=== PATIENT | male | born 1940 | race Caucasian/White ===

== ENCOUNTER 2016-12-31 14:46 | Inpatient (IN) | payer OTHER, BC ==
[2016-12-31 14:52] VITALS: BMI 30.4
--- NOTE | 2016-12-31 15:47 | PDOC ---
History of Present Illness - General History Source: Patient Exam Limitations: No Limitations - History of Present Illness Initial Comments: 12/31/16 16:00 CHIEF COMPLAINT: Fever, cough PCP: Dr. Arteaga HISTORY OF PRESENT ILLNESS: Patient is a 76-year-old male presented to the ED with chief complaints of cough and fever. A/c to the patient, he had productive cough since a week, producing whitish-yellowish sputum, no blood noticed. Last night, he had rigors and sweating for several hours and Temp (Tmax was 104.5 F), took one tylenol and fever decreased to 102F. This morning he called Dr. Arteaga and he recommended to come to the ED at [facility]. Patient reports that his son had a flu 2weeks ago and patient had been visiting him wearing a mask. He mentions he has a high risk of bleeding in NSAIDs and even tylenol but unsure about the risk of bleeding with tylenol. Denies chest pain, sob, palpitation, abdominal pain, nausea or vomiting. Sleep-disturbed due to cough Appetite decreased Bowel/Bladder habit normal. Recent Travel: None PAST MEDICAL HISTORY: Atrial fibrillation on Plavix, Colon polyp s/p polypectomy , Retinal detachment s/p 6 surgery. PAST SURGICAL HISTORY: As mentioned above Social History: Smoking: Quit 47 years ago. Alcohol: Denies Drugs: Denies Family History: Allergies: NKDA <Cheryl Marin - Last Filed: 12/31/16 19:48> <Bindu Rojas - Last Filed: 01/02/17 08:26> - General Chief Complaint: Cold Symptoms Stated Complaint: FLU LIKE SYMTOMPS Time Seen by Provider: 12/31/16 15:45 Past History - Past Medical History Anemia: No Asthma: No Cancer: Yes (SKIN) Cardiac Disorders: Yes (ATRIAL FIBRILLATION) CVA: No COPD: No CHF: No Dementia: No Diabetes: No GI Disorders: No (REFLUX, BRAGG'S ESOPHAGUS, GASTRITIS) Disorders: Yes (ENLARGED PROSTATE) HTN: No Hypercholesterolemia: Yes (BORDERLINE) Liver Disease: No Seizures: No Thyroid Disease: No - Surgical History Abdominal Surgery: Yes (REPAIR UMBILICAL HERNIA 2X) Appendectomy: No Cardiac Surgery: No Cholecystectomy: No Lung Surgery: No Neurologic Surgery: No Orthopedic Surgery: No - Immunization History TDAP Vaccination: No - Psycho/Social/Smoking Cessation Hx Anxiety: No Suicidal Ideation: No Smoking Status: Yes Smoking History: Former smoker Have you smoked in the past 12 months: No Number of Cigarettes Smoked Daily: 0 If you are a former smoker, when did you quit?: 2011 Information on smoking cessation initiated: No 'Breaking Loose' booklet given: 05/17/12 Hx Alcohol Use: Yes (RARELY) Drug/Substance Use Hx: No Substance Use Type: None Hx Substance Use Treatment: No <Cheryl Marin - Last Filed: 12/31/16 19:48> <Bindu Rojas - Last Filed: 01/02/17 08:26> - Past Medical History Allergies/Adverse Reactions: Allergies Allergy/AdvReac Type Severity Reaction Status Date / Time codeine phosphate AdvReac Verified 12/31/16 14:52 [From Tylenol-Codeine] Home Medications: Ambulatory Orders Furosemide [Lasix -] 40 mg PO DAILY 05/14/12 Finasteride [Proscar] 5 mg PO HS 09/07/14 Omeprazole Magnesium [Prilosec (OTC)] 1 tab OD DAILY 09/07/14 Ranitidine [Zantac -] 1 tab PO DAILY 09/07/14 Tamsulosin HCl [Flomax -] 0.4 mg PO HS 09/07/14 Clopidogrel Bisulfate [Plavix -] 75 mg PO DAILY #0 09/08/14 Cholecalciferol (Vitamin D3) [D3-2000] 2,000 unit PO DAILY 09/18/14 Review of Systems - Review of Systems Able to Perform ROS?: Yes Comments:: 12/31/16 17:22 CONSTITUTIONAL: Present: fever, chills, diaphoresis, generalized weakness, malaise, loss of appetite Absent: HEENT: Absent: rhinorrhea, nasal congestion, throat pain, throat swelling, difficulty swallowing, mouth swelling, ear pain, eye pain, visual Changes CARDIOVASCULAR: Absent: chest pain, syncope, palpitations, irregular heart rate, lightheadedness , peripheral edema RESPIRATORY: Present: cough Absent: shortness of breath, dyspnea with exertion, orthopnea, wheezing, stridor , hemoptysis GASTROINTESTINAL: Absent: abdominal pain, abdominal distension, nausea, vomiting, diarrhea, constipation, melena, hematochezia GENITOURINARY:~ Absent: dysuria, frequency, urgency, hesitancy, hematuria, flank pain, genital pain MUSCULOSKELETAL:~ Absent: myalgia, arthralgia, joint swelling SKIN:~ Absent: rash, itching, pallor HEMATOLOGIC/IMMUNOLOGIC:~ Absent: easy bleeding, easy bruising, lymphadenopathy, frequent infections ENDOCRINE: Absent: unexplained weight gain, unexplained weight loss, heat intolerance, cold intolerance NEUROLOGIC:~ Absent: headache, focal weakness or paresthesias, dizziness, unsteady gait, seizure, mental status changes, bladder or bowel incontinence PSYCHIATRIC:~ Absent: anxiety, depression, suicidal or homicidal ideation, hallucinations. Is the patient limited Cymro proficient: No <Cheryl Marin - Last Filed: 12/31/16 19:48> *Physical Exam - Vital Signs Last Vital Signs Temp Pulse Resp BP Pulse Ox 99.1 F 116 H 18 118/67 95 12/31/16 14:49 12/31/16 14:49 12/31/16 14:49 12/31/16 14:49 12/31/16 14:49 - Physical Exam Comments: 12/31/16 17:23 PE: GENERAL: Awake, alert, and fully oriented, in no acute distress HEAD: No signs of trauma EYES: PERRLA, EOMI, sclera anicteric, conjunctiva clear ENT: Auricles normal inspection, hearing grossly normal, nares patent, oropharynx clear without exudates. Moist mucosa NECK: Normal ROM, supple, no lymphadenopathy, JVD, or masses LUNGS: Breath sounds equal, clear to auscultation bilaterally. No wheezes, and no crackles.. HEART: Irregularly irregular, normal S1 and S2, soft systolic murmur +. ABDOMEN: Soft, nontender, normoactive bowel sounds. No guarding, no rebound. No masses EXTREMITIES: Normal range of motion, no edema. No clubbing or cyanosis. No cords, erythema, or tenderness NEUROLOGICAL: Cranial nerves II through XII grossly intact. Normal speech,gait not observed. SKIN: Warm, Dry, normal turgor, no rashes or lesions noted. <Cheryl Marin - Last Filed: 12/31/16 19:48> - Vital Signs Last Vital Signs Temp Pulse Resp BP Pulse Ox 98.2 F 95 H 16 121/64 93 L 01/02/17 06:00 01/02/17 06:00 01/02/17 06:00 01/02/17 06:00 01/01/17 21:00 <Bindu Rojas - Last Filed: 01/02/17 08:26> ED Treatment Course - LABORATORY CBC & Chemistry Diagram: 12/31/16 16:40 12/31/16 16:40 <TaniaCheryl pleitez - Last Filed: 12/31/16 19:48> - LABORATORY CBC & Chemistry Diagram: 01/02/17 06:00 01/02/17 06:00 - ADDITIONAL ORDERS Additional order review: 12/31/16 18:40 Blood Culture - Preliminary Blood - Central Line NO GROWTH OBTAINED AFTER 24 HOURS, INCUBATION TO CONTINUE FOR 4 DAYS. 12/31/16 18:18 Blood Culture - Preliminary Blood - Central Line NO GROWTH OBTAINED AFTER 24 HOURS, INCUBATION TO CONTINUE FOR 4 DAYS. 12/31/16 16:41 Respiratory Virus Panel - Preliminary Nasopharyngeal Swab 12/31/16 16:41 Influenza Types A,B Antigen (TANISHA) - Final Nasopharyngeal Swab - Final 12/31/16 16:40 RBC 3.86 L MCV 91.3 MCHC 34.3 RDW 13.4 MPV 8.4 Neutrophils % 91.0 H D Lymphocytes % 6.3 L D Monocytes % 2.6 L Eosinophils % 0.0 D Basophils % 0.1 - Medications Given in the ED: ED Medications Discontinued Medications Generic Name Dose Route Start Last Admin Trade Name Freq PRN Reason Stop Dose Admin Sodium Chloride 1,000 mls @ 75 mls/hr 12/31/16 16:45 12/31/16 16:10 Normal Saline - IV 75 mls/hr ASDIR JON Administration Azithromycin 500 mg/ Dextrose 250 mls @ 250 mls/hr 12/31/16 19:20 12/31/16 19: 57 IVPB 12/31/16 20:19 250 mls/hr ONCE ONE Administration Ceftriaxone Sodium 1 gm/ 50 mls @ 100 mls/hr 12/31/16 19:19 12/31/16 19:41 Dextrose IVPB 12/31/16 19:48 100 mls/hr ONCE ONE Administration Non-Formulary Medication 2,000 unit 12/31/16 19:45 12/31/16 22:15 Cholecalciferol (Vitamin D3) [D3-2000] PO Not Given DAILY JON Non-Formulary Medication 1 tab 12/31/16 19:45 12/31/16 22:15 Omeprazole Magnesium [Prilosec (Otc)] OD Not Given DAILY JON <Bindu Rojas - Last Filed: 01/02/17 08:26> Medical Decision Making - Medical Decision Making 12/31/16 14:50 Patient seen and examined at bed side. Vitals noted, Temp 99F. Patient looks comfortable. Physical examination, irregularly irregular pulse, rest benign. Will order basic labs, cxr, ekg, flu swab IV fluids Differential diagnosis: Flu, Pneumonia, viral URTI 12/31/16 16:00 Patient reassessed. No complaints Labs noted. Leukocytosis; Chest x-ray shows right middle lobe infiltrate IV Ceftriaxone, IV azithromycin and Tamiflu ordered. 12/31/2016 19:35 Clinical Impression: Right middle lobe pneumonia Call placed to Dr. Arteaga. As per his recommendations, Admitted the patient in Med/Surg Resumed his home medications Hold Lasix D5 1/2 NS @ 60cc Sodium controlled diet ordered Illness, Investigation and Plan of care explained to the patient. He verbalized understanding. Case seen and discussed with Dr. Rojas, Dr. Treadwell and Dr. Arteaga. <Elizabeth Marinny - Last Filed: 12/31/16 19:48> *DC/Admit/Observation/Transfer - Discharge Dispostion Admit: Yes <TaniaCheryl - Last Filed: 12/31/16 19:48> - Attestations Physician Attestion: I have performed the following: I have examined & evaluated the patient, The case was reviewed & discussed with the resident, I agree w/resident's findings & plan, Exceptions are as noted - HPI HPI: 76 yo M multiple medical problems presenting with fever x2 days with Tmax 104.5 at home. He had a +flu exposure from a family member, however, he was wearing a mask. +Sweats. He has had productive cough for past 1 week. No difficulty breathing, chest pain. - Physicial Exam PE: GENERAL: Awake, alert, and fully oriented, in no acute distress. Appears ill but nontoxic. HEAD: No signs of trauma EYES: PERRLA, EOMI, sclera anicteric, conjunctiva clear. ENT: Auricles normal inspection, hearing grossly normal, nares patent, oropharynx clear without exudates. Dry mucosa NECK: Normal ROM, supple, no lymphadenopathy, JVD, or masses LUNGS: Breath sounds equal, clear to auscultation bilaterally. No wheezes, and no crackles HEART: Irregularly irregular, normal S1 and S2, no murmurs, rubs or gallops ABDOMEN: Soft, nontender, normoactive bowel sounds. No guarding, no rebound. No masses EXTREMITIES: Normal range of motion, no edema. No clubbing or cyanosis. No cords, erythema, or tenderness NEUROLOGICAL: Cranial nerves II through XII grossly intact. Normal speech, normal gait SKIN: Warm, Dry, normal turgor, no rashes or lesions noted. - Medical Decision Making Will obtain flu swab, labs, UA, UCx, and BCx, as well as chest x-ray. Will discuss with Dr. Nix pending results. <Bindu Rojas - Last Filed: 01/02/17 08:26> Diagnosis at time of Disposition: Pneumonia Qualifiers: Pneumonia type: due to unspecified organism Laterality: right Lung location: unspecified part of lung Qualified Code(s): J18.9 - Pneumonia, unspecified organism - Discharge Dispostion Condition at time of disposition: Guarded - Referrals
[2016-12-31] MEDS ORDERED: SODIUM CHLORIDE 1,000 ML IV SCH (16:45)
[2016-12-31 16:56] LABS: URINE APPEARANCE CLEAR; URINE BILIRUBIN NEGATIVE (NEGATIVE); URINE BLOOD NEGATIVE (NEGATIVE); URINE COLOR YELLOW; URINE GLUCOSE (UA) NEGATIVE (NEGATIVE); URINE KETONE NEGATIVE (NEGATIVE); URINE LEUK ESTERASE NEGATIVE (NEGATIVE); URINE NITRITE NEGATIVE (NEGATIVE); URINE UROBILINOGEN NEGATIVE E.U./dl (0.2-1.0)
[2016-12-31 17:01] LABS: BASOPHIL 0.1 % (0-2.0); MCH 31.3 pg (25.7-33.7); MCHC 34.3 g/dl (32.0-35.9); MEAN CELL VOLUME 91.3 fl (80-96); MEAN PLT VOLUME 8.4 fl (7.5-11.1); PLATELET COUNT 174 K/MM3 (134-434); RDW 13.4 % (11.9-15.9); WHITE BLOOD COUNT 13.3 K/mm3 (4.0-10.0)
[2016-12-31 17:14] LABS: INR 1.36 (0.82-1.09)
[2016-12-31 17:17] LABS: ACTIVATED PTT 33.3 SECONDS (26.9-34.4)
[2016-12-31 17:23] LABS: URINE PROTEIN 1+ (NEGATIVE)
[2016-12-31 17:26] LABS: ALBUMIN 3.1 g/dl (3.4-5.0); BILIRUBIN,TOTAL 2.6 mg/dL (0.2-1.0); CALCIUM 8.4 mg/dL (8.5-10.1); CREATININE 1.3 mg/dL (0.7-1.3); TOT PROT 6.9 g/dl (6.4-8.2)
[2016-12-31 17:29] LABS: URINE MUCUS RARE; URINE RBC <1 /hpf (0-3); URINE WBC 1 /hpf (3-5)
[2016-12-31] MEDS ORDERED: CEFTRIAXONE 1 GM in DEXTROSE 5%-WATER - 50 ML IVPB ONE (19:19)
[2016-12-31] MEDS ORDERED: AZITHROMYCIN IVPB 500 MG in DEXTROSE 5%-WATER - 250 ML IVPB ONE (19:20)
[2016-12-31] MEDS ORDERED: AZITHROMYCIN IVPB 250 ML IVPB ONE (19:33)
[2016-12-31] MEDS ORDERED: CEFTRIAXONE 50 ML ONE (19:33)
[2016-12-31] MEDS ORDERED: OMEPRAZOLE MAGNESIUM OD SCH (19:45)
[2016-12-31] MEDS ORDERED: CHOLECALCIFEROL PO SCH (19:45)
[2016-12-31] MEDS ORDERED: [UNRECOGNIZED DRUG - OTHER] PO SCH (19:45)
[2016-12-31] MEDS ORDERED: ACETAMINOPHEN 325 MG TABLET (FP) PO PRN (19:45)
[2016-12-31] MEDS ORDERED: ACETAMINOPHEN 325 MG TABLET (FP) ONE (21:23)
[2016-12-31] MEDS: RANITIDINE HCL 150 MG TABLET (FP) PO SCH (22:14)
[2016-12-31] MEDS: CLOPIDOGREL BISULFATE 75 MG TABLET (FP) PO SCH (22:14)
[2016-12-31] MEDS: PANTOPRAZOLE 20 MG TABLET (FP) PO SCH (22:15)
[2016-12-31] MEDS: DEXTROSE 5%-0.45% SALINE 1,000 ML IV SCH (22:48)
[2016-12-31] MEDS: FINASTERIDE 5 MG TABLET (FP) PO SCH (22:49)
[2016-12-31] MEDS: TAMSULOSIN HCL 0.4 MG CAP.ER.24H (FP) PO SCH (22:49)
[2016-12-31] MEDS: OSELTAMIVIR PHOSPHATE 75 MG CAPSULE PO SCH (22:50)
[2017-01-01] MEDS: CLOPIDOGREL BISULFATE 75 MG TABLET (FP) PO SCH (09:59)
[2017-01-01] MEDS: RANITIDINE HCL 150 MG TABLET (FP) PO SCH (10:00)
[2017-01-01] MEDS: CHOLECALCIFEROL (VITAMIN D3) 1,000 UNIT TABLET (FP) PO SCH (10:00)
[2017-01-01] MEDS: PANTOPRAZOLE 20 MG TABLET (FP) PO SCH (10:00)
[2017-01-01] MEDS: OSELTAMIVIR PHOSPHATE 75 MG CAPSULE PO SCH ×2 (10:00→21:35)
[2017-01-01] MEDS ORDERED: INFLUENZA VACCINE 45 MCG/0.5 ML (MDV 16-17) IM ONE ×2 (10:00→10:45)
--- NOTE | 2017-01-01 12:10 | PN ---
Teaching Attending Note Name of Resident: Dunia Alonzo ATTENDING PHYSICIAN STATEMENT I saw and evaluated the patient. I reviewed the resident's note and discussed the case with the resident. I agree with the resident's findings and plan as documented. 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
[2017-01-01] MEDS ORDERED: AZITHROMYCIN IVPB 500 MG in DEXTROSE 5%-WATER - 250 ML IVPB SCH (12:15)
[2017-01-01] MEDS ORDERED: CEFTRIAXONE 1 GM in DEXTROSE 5%-WATER - 50 ML IVPB SCH (12:15)
[2017-01-01] MEDS: cefTRIAXone 1 GM/50 ML BAG (PRE-DOCKED) IVPB SCH (13:58)
[2017-01-01] MEDS: AZITHROMYCIN IVPB 500 MG/250 ML D5W PRE-DOCKED IVPB SCH (13:59)
--- NOTE | 2017-01-01 14:10 | EKG ---
Test Reason : Blood Pressure : / mmHG Vent. Rate : 095 BPM Atrial Rate : 131 BPM P-R Int : 000 ms QRS Dur : 100 ms QT Int : 360 ms P-R-T Axes : 000 057 033 degrees QTc Int : 452 ms ATRIAL FIBRILLATION ABNORMAL ECG WHEN COMPARED WITH ECG OF 04-NOV-2012 16:00, NO SIGNIFICANT CHANGE WAS FOUND Confirmed by JORDAN CLEMONS MD ([id number]) on 01/01/2017 2:09:58 PM Referred By: Confirmed By:JORDAN CLEMONS MD
--- NOTE | 2017-01-01 15:40 | PN ---
Progress Note (short form) - Note Progress Note: ID Consult dictated 76 y/o ex-smoker admitted with one week hx productive cough, fever. CXR/CT RML pneumonia Son recently diagnosed with influenza RML pneumonia Possible sepsis secondary to pneumonia Await cultures Empiric zithromax/ ceftriaxone
--- NOTE | 2017-01-01 16:23 | CONSULT ---
Addendum entered and electronically signed by Dunia Alonzo RES 01/01/17 17: 46: . Original Note: Consultation: REQUESTING PROVIDER: CONSULT REQUEST: We have been asked to medically evaluate this patient for cough and fever. HISTORY OF PRESENT ILLNESS: This is a 76 yo M past smoker with PMH of a fib on plav, colon polyp and retinal detachment, who presents due to cough x 1 w and fever x 2 days. He states that 1 w ago he visited a family member in the hospital who had influenza. He wore a mask at the time. He did not have a flu or PNA shot this season. Shortly after trista visit he developed cough with yellow sputum w/o sob. Cough worsened and 2 days ago he developed fever 104 and rigors. He has 45 pack yr smoking history, quit 30 yrs ago. 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 He currently feels a it better but developed some hemoptysis. He denies sob, chest pain, abd pain, n/v, diarrhea, dysuria. REVIEW OF SYSTEMS: CONSTITUTIONAL: Absent: diaphoresis, generalized weakness, malaise, loss of appetite, weight change HEENT: Absent: rhinorrhea, nasal congestion, throat pain CARDIOVASCULAR: Absent: chest pain, syncope, palpitations RESPIRATORY: Absent: shortness of breath, dyspnea with exertion, orthopnea, wheezing, stridor GASTROINTESTINAL: Absent: abdominal pain, abdominal distension, nausea, vomiting, diarrhea, constipation, melena, hematochezia GENITOURINARY: Absent: dysuria MUSCULOSKELETAL: Absent: myalgia, arthralgia SKIN: Absent: rash, itching, pallor HEMATOLOGIC/IMMUNOLOGIC: Absent: frequent infections ENDOCRINE: Absent: heat intolerance, cold intolerance NEUROLOGIC: Absent: headache, focal weakness or paresthesias, dizziness PSYCHIATRIC: Absent: anxiety, depression PHYSICAL EXAMINATION Vital Signs - 24 hr 12/31/16 12/31/16 01/01/17 21:21 22:30 06:00 Temperature 101.2 F H 99.9 F H 98.5 F Pulse Rate 108 H 97 H Pulse Rate [ 94 H Right] Respiratory 20 20 20 Rate Blood Pressure 112/66 109/57 Blood Pressure 150/80 [Left Arm] O2 Sat by Pulse 96 93 L Oximetry (%) 01/01/17 01/01/17 01/01/17 09:00 09:05 13:00 Temperature 98.7 F 98.1 F Pulse Rate 103 H 105 H Pulse Rate [ Right] Respiratory 20 20 20 Rate Blood Pressure 100/50 103/69 Blood Pressure [Left Arm] O2 Sat by Pulse 93 L Oximetry (%) GENERAL: Awake, alert, and fully oriented, in no acute distress. HEAD: Normal with no signs of trauma. EYES: Pupils equal, round and reactive to light, extraocular movements intact, sclera anicteric, conjunctiva clear. EARS, NOSE, THROAT: Moist mucous membranes. NECK: supple without JVD LUNGS: RLL ronchi HEART: irregular, normal S1 and S2 ABDOMEN: Soft, nontender, not distended, normoactive bowel sounds MUSCULOSKELETAL: No CVA tenderness. UPPER EXTREMITIES: 2+ pulses, No peripheral edema. LOWER EXTREMITIES: 2+ pulses, No peripheral edema. NEUROLOGICAL: Cranial nerves II-XII grossly intact. PSYCHIATRIC: Cooperative. Good eye contact. SKIN: Warm, dry Active Medications Generic Name Dose Route Start Last Admin Trade Name Freq PRN Reason Stop Dose Admin Acetaminophen 650 mg 12/31/16 19:45 12/31/16 21:24 Tylenol - PO 650 mg TID PRN Administration FEVER Albuterol Sulfate 1 amp 01/01/17 13:10 Ventolin 0.083% Nebulizer Soln - NEB Q1H PRN SHORT OF BREATH/WHEEZING Azithromycin 500 mg 01/01/17 13:00 01/01/17 13:59 Zithromax 500mg Ivpb (Pre-Docked) IVPB 500 mg DAILY JON Administration Ceftriaxone Sodium 1 gm 01/01/17 13:00 01/01/17 13:58 Rocephin 1gm Ivpb (Pre-Docked) IVPB 1 gm DAILY OJN Administration Cholecalciferol 2,000 unit 01/01/17 10:00 01/01/17 10:00 Vitamin D3 - PO 2,000 unit DAILY JON Administration Clopidogrel Bisulfate 75 mg 12/31/16 19:45 01/01/17 09:59 Plavix - PO 75 mg DAILY JON Administration Finasteride 5 mg 12/31/16 22:00 12/31/16 22:49 Proscar - PO 5 mg HS JON Administration Dextrose/Sodium Chloride 1,000 mls @ 60 mls/hr 12/31/16 19:45 12/31/16 22:48 D5-1/2ns - IV 60 mls/hr ASDIR JON Administration Influenza Virus Vaccine 45 mcg 01/01/17 10:45 Fluvirin IM 01/01/17 10:46 .ONCE ONE Oseltamivir Phosphate 75 mg 12/31/16 22:00 01/01/17 10:00 Tamiflu - PO 01/05/17 21:59 75 mg BID JON Administration Pantoprazole Sodium 20 mg 12/31/16 20:15 01/01/17 10:00 Protonix - PO 20 mg DAILY JON Administration Ranitidine HCl 150 mg 12/31/16 19:45 01/01/17 10:00 Zantac - PO 150 mg DAILY JON Administration Tamsulosin HCl 0.4 mg 12/31/16 22:00 12/31/16 22:49 Flomax - PO 0.4 mg HS JON Administration ASSESSMENT/PLAN: Community acquired Pneumonia -influenza exposure -flu swab negative -cotnact precaution -tamiflu -flu vaccine -CXR RLL infiltrate -CT Chest RML PNA -rocephin, azithro -robitussin -albuterol -legionella antigen -sputum culture/gram -resp virus culture A fib -continue plavix -rate controlled Dispo: We will continue to follow the patient. Thank you for this consultative opportunity. Problem List - Problems (1) Afib Code(s): I48.91 - UNSPECIFIED ATRIAL FIBRILLATION (2) Pneumonia Code(s): J18.9 - PNEUMONIA, UNSPECIFIED ORGANISM (3) Community acquired bacterial pneumonia Code(s): J15.9 - UNSPECIFIED BACTERIAL PNEUMONIA (4) Influenza Code(s): J11.1 - FLU DUE TO UNIDENTIFIED INFLUENZA VIRUS W OTH RESP MANIFEST Visit type - Emergency Visit Emergency Visit: Yes ED Registration Date: 12/31/16 Care time: The patient presented to the Emergency Department on the above date and was hospitalized for further evaluation of their emergent condition. - New Patient This patient is new to me today: Yes Date on this admission: 01/01/17 - Critical Care Critical Care patient: No
--- NOTE | 2017-01-01 17:10 | PN ---
Teaching Attending Note Name of Resident: Cheryl Marin ATTENDING PHYSICIAN STATEMENT I saw and evaluated the patient. I reviewed the resident's note and discussed the case with the resident. I agree with the resident's findings and plan as documented. RIGHT MIDDLE LOBE INFILTRATE MULTIPLE MEDICAL PROBLEMS LISTED AGREE WITH CURRENT ANTIBIOTIC REGIMEN Carlos COLLADO MD
--- NOTE | 2017-01-01 19:12 | CONS ---
DATE OF CONSULTATION: DATE OF DICTATION: 01/01/2017 The patient is a 76-year-old male, ex smoker, who was evaluated for right middle lobe pneumonia. He presents with a 1-week history of worsening productive cough, dyspnea, pleuritic type chest pain, and fever. The patient reports cough productive of yellowish/whitish sputum, most recently blood-streaked. He also has sternal chest pain with cough. He also experienced fever and chills. The patient was recently hospitalized with heart issues and was diagnosed with acute influenza. He does not live with his son. Positive ill contacts (son). No recent travel or significant pet exposure. No recent hospitalization. Past medical history positive for coronary artery disease, atrial fibrillation, gastroesophageal reflux, colonic polyps. PAST SURGICAL HISTORY: Status post colonic polypectomy, retinal detachment. Allergies to CODEINE. MEDICATIONS: Lasix, Proscar, Prilosec, Zantac, Flomax, Plavix. SOCIAL HISTORY: Former smoker. Lives at home with his . SYSTEMS REVIEW: Neurologic: No loss of consciousness, seizure activity, focal weakness. Cardiac: Negative chest pain or palpitations. Respiratory: As per HPI. Gastrointestinal: Negative vomiting or diarrhea. Genitourinary: Negative for urinary tract infection. LABORATORY DATA: White count 13.3, 91 neutrophils, 6 lymphocytes, hematocrit 35.2, platelet count 174. BUN 10, creatinine 1.3. Urine analysis: 1 white cell. Chest x-ray shows right middle lobe infiltrate. CAT scan of the chest shows extensive right middle lobe consolidation. PHYSICAL EXAMINATION: General: He is out of bed to chair. He is not acutely toxic appearing. Vital Signs: Temperature 98.1, T-max 101.2. Blood pressure 103/69. Pulse 105, regular. Respiration 22 per minute. Eyes: Sclerae anicteric. Oropharynx: Negative. Neck: Supple. Heart Sounds: S1, S2. Lungs: Crepitations, right lower lung field. Abdomen: Obese, soft, nontender. Extremities: 1+ edema. There is chronic venous stasis dermatitis, lower extremities bilaterally. IMPRESSION: A 76-year-old male, ex smoker, admitted with 1-week history of productive cough and fever, found on chest x-ray and CAT scan to have a right middle lobe pneumonia. 1. Right middle lobe pneumonia, likely community acquired versus atypical. 2. Possible post-viral pneumonitis. 3. Possible sepsis secondary to pneumonia. Await culture results. Empiric antibiotic coverage with Zithromax and ceftriaxone. Obtain sputum culture, urine Legionella, and pneumococcal antigens. Case discussed with patient's present at the time of examination. Thank you for the kind referral. JORGE A BEDOLLA M.D. [id number]
[2017-01-01] MEDS ORDERED: PT OWN MED DRAWER 7, Y5N ONE (21:31)
[2017-01-01] MEDS: FINASTERIDE 5 MG TABLET (FP) PO SCH (21:35)
[2017-01-01] MEDS: DEXTROSE 5%-0.45% SALINE 1,000 ML IV SCH (21:35)
[2017-01-01] MEDS: TAMSULOSIN HCL 0.4 MG CAP.ER.24H (FP) PO SCH (21:35)
[2017-01-01] MEDS: ALBUTEROL SO4 0.083% IH SOL 2.5 MG/3 ML VIAL.NEB. NEB PRN (21:50)
[2017-01-02] MEDS: ALBUTEROL SO4 0.083% IH SOL 2.5 MG/3 ML VIAL.NEB. NEB PRN ×2 (05:50→11:48)
[2017-01-02] MEDS: DEXTROSE 5%-0.45% SALINE 1,000 ML IV SCH ×2 (06:02→21:35)
[2017-01-02 06:58] LABS: BASOPHIL 0.2 % (0-2.0); EOSINOPHIL 0.2 % (0-4.5); MCH 31.6 pg (25.7-33.7); MCHC 33.9 g/dl (32.0-35.9); MEAN CELL VOLUME 93.1 fl (80-96); MEAN PLT VOLUME 8.4 fl (7.5-11.1); NEUTROPHILS 64.7 % (42.8-82.8); PLATELET COUNT 142 K/MM3 (134-434); RDW 13.5 % (11.9-15.9); WHITE BLOOD COUNT 6.9 K/mm3 (4.0-10.0)
[2017-01-02 07:25] LABS: CALCIUM 8.3 mg/dL (8.5-10.1)
[2017-01-02] MEDS: cefTRIAXone 1 GM/50 ML BAG (PRE-DOCKED) IVPB SCH (09:53)
[2017-01-02] MEDS: OSELTAMIVIR PHOSPHATE 75 MG CAPSULE PO SCH ×2 (09:59→21:35)
[2017-01-02] MEDS: CLOPIDOGREL BISULFATE 75 MG TABLET (FP) PO SCH (09:59)
[2017-01-02] MEDS ORDERED: INFLUENZA VACCINE 60 MCG/0.5 ML (P/F DISP.SYRIN 16-17) IM ONE (10:00)
[2017-01-02] MEDS: CHOLECALCIFEROL (VITAMIN D3) 1,000 UNIT TABLET (FP) PO SCH (10:00)
[2017-01-02] MEDS: PANTOPRAZOLE 20 MG TABLET (FP) PO SCH (10:00)
[2017-01-02] MEDS: RANITIDINE HCL 150 MG TABLET (FP) PO SCH (10:00)
[2017-01-02] MEDS: AZITHROMYCIN IVPB 500 MG/250 ML D5W PRE-DOCKED IVPB SCH (10:42)
--- NOTE | 2017-01-02 12:39 | PN ---
Teaching Attending Note Name of Resident: Dunia Alonzo ATTENDING PHYSICIAN STATEMENT I saw and evaluated the patient. I reviewed the resident's note and discussed the case with the resident. I agree with the resident's findings and plan as documented. 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 Problem List - Problems (1) Pneumonia Code(s): J18.9 - PNEUMONIA, UNSPECIFIED ORGANISM Qualifiers: Pneumonia type: due to unspecified organism Laterality: right Lung location: unspecified part of lung Qualified Code(s): J18.9 - Pneumonia, unspecified organism (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
[2017-01-02] MEDS: FUROSEMIDE 40 MG TABLET (FP) PO SCH (13:35)
--- NOTE | 2017-01-02 15:03 | PN ---
Progress Note, Physician History of Present Illness: OOB in chair Still with cough, pleuritic cp No c/o dyspnea No fever/ chills Cultures pending - Current Medication List Current Medications: Active Medications Acetaminophen (Tylenol -) 650 mg PO TID PRN PRN Reason: FEVER Last Admin: 12/31/16 21:24 Dose: 650 mg Albuterol Sulfate (Ventolin 0.083% Nebulizer Soln -) 1 amp NEB Q1H PRN PRN Reason: SHORT OF BREATH/WHEEZING Last Admin: 01/02/17 11:48 Dose: 1 amp Azithromycin (Zithromax 500mg Ivpb (Pre-Docked)) 500 mg IVPB DAILY [facility] Last Admin: 01/02/17 10:42 Dose: 500 mg Ceftriaxone Sodium (Rocephin 1gm Ivpb (Pre-Docked)) 1 gm IVPB DAILY [facility] Last Admin: 01/02/17 09:53 Dose: 1 gm Cholecalciferol (Vitamin D3 -) 2,000 unit PO DAILY [facility] Last Admin: 01/02/17 10:00 Dose: 2,000 unit Clopidogrel Bisulfate (Plavix -) 75 mg PO DAILY [facility] Last Admin: 01/02/17 09:59 Dose: 75 mg Finasteride (Proscar -) 5 mg PO HS [facility] Last Admin: 01/01/17 21:35 Dose: 5 mg Furosemide (Lasix -) 40 mg PO DAILY [facility] Last Admin: 01/02/17 13:35 Dose: 40 mg Dextrose/Sodium Chloride (D5-1/2ns -) 1,000 mls @ 60 mls/hr IV ASDIR [facility] Last Admin: 01/02/17 06:02 Dose: 60 mls/hr Oseltamivir Phosphate (Tamiflu -) 75 mg PO BID [facility] Stop: 01/05/17 21:59 Last Admin: 01/02/17 09:59 Dose: 75 mg Pantoprazole Sodium (Protonix -) 20 mg PO DAILY [facility] Last Admin: 01/02/17 10:00 Dose: 20 mg Ranitidine HCl (Zantac -) 150 mg PO DAILY [facility] Last Admin: 01/02/17 10:00 Dose: 150 mg Tamsulosin HCl (Flomax -) 0.4 mg PO HS [facility] Last Admin: 01/01/17 21:35 Dose: 0.4 mg - Objective Vital Signs: Vital Signs Temperature 98.1 F 01/02/17 10:00 Pulse Rate 97 H 01/02/17 10:00 Respiratory Rate 19 01/02/17 10:00 Blood Pressure 106/62 01/02/17 10:00 O2 Sat by Pulse Oximetry (%) 94 L 01/02/17 09:00 Constitutional: Yes: No Distress Eyes: Yes: Conjunctiva Clear Cardiovascular: Yes: Regular Rate and Rhythm, S1, S2 Respiratory: Yes: Rhonchi, Other (R base) Gastrointestinal: Yes: Normal Bowel Sounds, Soft. No: Tenderness Edema: Yes Edema: LLE: 1+, RLE: 1+ Labs: CBC, BMP 01/02/17 06:00 01/02/17 06:00 INR, PTT INR 1.36 (0.82-1.09) H 12/31/16 16:40 Assessment/Plan RML pneumonia Possible sepsis secondary to pneumonia Await c/s Continue empiric zithromax/ ceftriaxone
--- NOTE | 2017-01-02 15:33 | PN ---
Physical Exam: SUBJECTIVE: Patient seen and examined Resting in bed comfortably NAD. No acute events. Afebrile and hemodynamically stable. Feels, better, stronger, cough is the same, purulent sputum frothy with some hemoptysis. He denies sob, chest pain, abd pain, n/v, diarrhea, dysuria. OBJECTIVE: Vital Signs Period Temp Pulse Resp BP Sys/Haynes Pulse Ox Last 24 Hr 98.0 F-98.4 F 93-97 16-19 106-127/62-70 93-94 GENERAL: Awake, alert, and fully oriented, in no acute distress. HEAD: Normal with no signs of trauma. EYES: Pupils equal, round and reactive to light, extraocular movements intact, sclera anicteric, conjunctiva clear. EARS, NOSE, THROAT: Moist mucous membranes. NECK: supple without JVD LUNGS: RLL ronchi HEART: irregular, normal S1 and S2 ABDOMEN: Soft, nontender, not distended, normoactive bowel sounds MUSCULOSKELETAL: No CVA tenderness. UPPER EXTREMITIES: 2+ pulses, No peripheral edema. LOWER EXTREMITIES: 2+ pulses, No peripheral edema. NEUROLOGICAL: Cranial nerves II-XII grossly intact. PSYCHIATRIC: Cooperative. Good eye contact. SKIN: Warm, dry Laboratory Results - last 24 hr 01/02/17 01/02/17 06:00 06:00 WBC 6.9 D RBC 3.75 L Hgb 11.8 Hct 34.9 L MCV 93.1 MCHC 33.9 RDW 13.5 Plt Count 142 MPV 8.4 Neutrophils % 64.7 D Lymphocytes % 31.8 D Monocytes % 3.1 L Eosinophils % 0.2 D Basophils % 0.2 Sodium 141 Potassium 4.0 Chloride 105 Carbon Dioxide 26 Anion Gap 10 BUN 14 Creatinine 1.0 D Random Glucose 117 H Calcium 8.3 L Active Medications Generic Name Dose Route Start Last Admin Trade Name Freq PRN Reason Stop Dose Admin Acetaminophen 650 mg 12/31/16 19:45 12/31/16 21:24 Tylenol - PO 650 mg TID PRN Administration FEVER Albuterol Sulfate 1 amp 01/01/17 13:10 01/02/17 11:48 Ventolin 0.083% Nebulizer Soln - NEB 1 amp Q1H PRN Administration SHORT OF BREATH/WHEEZING Azithromycin 500 mg 01/01/17 13:00 01/02/17 10:42 Zithromax 500mg Ivpb (Pre-Docked) IVPB 500 mg DAILY [facility] Administration Ceftriaxone Sodium 1 gm 01/01/17 13:00 01/02/17 09:53 Rocephin 1gm Ivpb (Pre-Docked) IVPB 1 gm DAILY [facility] Administration Cholecalciferol 2,000 unit 01/01/17 10:00 01/02/17 10:00 Vitamin D3 - PO 2,000 unit DAILY [facility] Administration Clopidogrel Bisulfate 75 mg 12/31/16 19:45 01/02/17 09:59 Plavix - PO 75 mg DAILY [facility] Administration Finasteride 5 mg 12/31/16 22:00 01/01/17 21:35 Proscar - PO 5 mg HS [facility] Administration Furosemide 40 mg 01/02/17 13:30 01/02/17 13:35 Lasix - PO 40 mg DAILY [facility] Administration Dextrose/Sodium Chloride 1,000 mls @ 60 mls/hr 12/31/16 19:45 01/02/17 06:02 D5-1/2ns - IV 60 mls/hr ASDIR [facility] Administration Oseltamivir Phosphate 75 mg 12/31/16 22:00 01/02/17 09:59 Tamiflu - PO 01/05/17 21:59 75 mg BID [facility] Administration Pantoprazole Sodium 20 mg 12/31/16 20:15 01/02/17 10:00 Protonix - PO 20 mg DAILY [facility] Administration Ranitidine HCl 150 mg 12/31/16 19:45 01/02/17 10:00 Zantac - PO 150 mg DAILY [facility] Administration Tamsulosin HCl 0.4 mg 12/31/16 22:00 01/01/17 21:35 Flomax - PO 0.4 mg HS [facility] Administration ASSESSMENT/PLAN: Community acquired Pneumonia -influenza exposure -flu swab negative -tamiflu -flu vaccine -CXR RLL infiltrate -CT Chest RML PNA -rocephin, azithro d2 -robitussin -albuterol -legionella antigen negative -sputum culture/gram -resp virus culture A fib -continue plavix -rate controlled Dispo: We will continue to follow the patient. Thank you for this consultative opportunity. Problem List - Problems (1) Afib Code(s): I48.91 - UNSPECIFIED ATRIAL FIBRILLATION (2) Pneumonia Code(s): J18.9 - PNEUMONIA, UNSPECIFIED ORGANISM Qualifiers: Pneumonia type: due to unspecified organism Laterality: right Lung location: unspecified part of lung Qualified Code(s): J18.9 - Pneumonia, unspecified organism (3) Community acquired bacterial pneumonia Code(s): J15.9 - UNSPECIFIED BACTERIAL PNEUMONIA (4) Influenza Code(s): J11.1 - FLU DUE TO UNIDENTIFIED INFLUENZA VIRUS W OTH RESP MANIFEST Visit type - Emergency Visit Emergency Visit: Yes ED Registration Date: 12/31/16 Care time: The patient presented to the Emergency Department on the above date and was hospitalized for further evaluation of their emergent condition. - New Patient This patient is new to me today: No - Critical Care Critical Care patient: No - Discharge Referral Referred to [facility] Med P.C.: No
[2017-01-02] MEDS ORDERED: PT OWN MED DRAWER 7, Y5N ONE ×2 (21:30→22:32)
[2017-01-02] MEDS: ACYCLOVIR 400 MG TABLET PO SCH (21:35)
[2017-01-02] MEDS: TAMSULOSIN HCL 0.4 MG CAP.ER.24H (FP) PO SCH (21:35)
[2017-01-02] MEDS: FINASTERIDE 5 MG TABLET (FP) PO SCH (21:35)
[2017-01-03] MEDS: DEXTROSE 5%-0.45% SALINE 1,000 ML IV SCH ×3 (06:38→22:00)
[2017-01-03] MEDS ORDERED: PT OWN MED DRAWER 7, Y5N ONE ×2 (09:18→21:00)
[2017-01-03] MEDS: CHOLECALCIFEROL (VITAMIN D3) 1,000 UNIT TABLET (FP) PO SCH (09:26)
[2017-01-03] MEDS: RANITIDINE HCL 150 MG TABLET (FP) PO SCH (09:26)
[2017-01-03] MEDS: FUROSEMIDE 40 MG TABLET (FP) PO SCH (09:26)
[2017-01-03] MEDS: PANTOPRAZOLE 20 MG TABLET (FP) PO SCH (09:26)
[2017-01-03] MEDS: ACYCLOVIR 400 MG TABLET PO SCH ×2 (09:26→21:12)
[2017-01-03] MEDS: OSELTAMIVIR PHOSPHATE 75 MG CAPSULE PO SCH ×2 (09:26→21:13)
[2017-01-03] MEDS: CLOPIDOGREL BISULFATE 75 MG TABLET (FP) PO SCH (09:26)
[2017-01-03] MEDS: AZITHROMYCIN IVPB 500 MG/250 ML D5W PRE-DOCKED IVPB SCH (09:29)
--- NOTE | 2017-01-03 10:25 | PN ---
Progress Note, Physician History of Present Illness: OOB in chair C/O perioral HSV Still with cough, blood-streaked sputum No c/o chest pain/ dyspnea Afebrile, WBC improved- WNL - Current Medication List Current Medications: Active Medications Acetaminophen (Tylenol -) 650 mg PO TID PRN PRN Reason: FEVER Last Admin: 12/31/16 21:24 Dose: 650 mg Acyclovir (Zovirax -) 400 mg PO BID [facility] Stop: 01/05/17 00:00 Last Admin: 01/03/17 09:26 Dose: 400 mg Albuterol Sulfate (Ventolin 0.083% Nebulizer Soln -) 1 amp NEB Q1H PRN PRN Reason: SHORT OF BREATH/WHEEZING Last Admin: 01/02/17 11:48 Dose: 1 amp Azithromycin (Zithromax 500mg Ivpb (Pre-Docked)) 500 mg IVPB DAILY [facility] Last Admin: 01/03/17 09:29 Dose: 500 mg Ceftriaxone Sodium (Rocephin 1gm Ivpb (Pre-Docked)) 1 gm IVPB DAILY [facility] Last Admin: 01/02/17 09:53 Dose: 1 gm Cholecalciferol (Vitamin D3 -) 2,000 unit PO DAILY [facility] Last Admin: 01/03/17 09:26 Dose: 2,000 unit Clopidogrel Bisulfate (Plavix -) 75 mg PO DAILY [facility] Last Admin: 01/03/17 09:26 Dose: 75 mg Finasteride (Proscar -) 5 mg PO HS [facility] Last Admin: 01/02/17 21:35 Dose: 5 mg Furosemide (Lasix -) 40 mg PO DAILY [facility] Last Admin: 01/03/17 09:26 Dose: 40 mg Dextrose/Sodium Chloride (D5-1/2ns -) 1,000 mls @ 60 mls/hr IV ASDIR [facility] Last Admin: 01/03/17 06:38 Dose: 60 mls/hr Oseltamivir Phosphate (Tamiflu -) 75 mg PO BID [facility] Stop: 01/05/17 21:59 Last Admin: 01/03/17 09:26 Dose: 75 mg Pantoprazole Sodium (Protonix -) 20 mg PO DAILY [facility] Last Admin: 01/03/17 09:26 Dose: 20 mg Ranitidine HCl (Zantac -) 150 mg PO DAILY [facility] Last Admin: 01/03/17 09:26 Dose: 150 mg Tamsulosin HCl (Flomax -) 0.4 mg PO HS [facility] Last Admin: 01/02/17 21:35 Dose: 0.4 mg - Objective Vital Signs: Vital Signs Temperature 98.1 F 01/03/17 09:15 Pulse Rate 100 H 01/03/17 09:15 Respiratory Rate 20 01/03/17 09:15 Blood Pressure 128/65 01/03/17 09:15 O2 Sat by Pulse Oximetry (%) 95 01/02/17 21:00 Constitutional: Yes: No Distress Eyes: Yes: Conjunctiva Clear HENT: Yes: Other (+perioral HSV) Cardiovascular: Yes: Regular Rate and Rhythm, S1 Respiratory: Yes: Other (+ crepitations, R base) Gastrointestinal: Yes: Normal Bowel Sounds, Soft, Abdomen, Obese. No: Tenderness Edema: Yes Edema: LLE: 1+, RLE: 1+ Integumentary: Yes: Venous Stasis Changes Labs: CBC, BMP 01/02/17 06:00 01/02/17 06:00 INR, PTT INR 1.36 (0.82-1.09) H 12/31/16 16:40 Assessment/Plan RML pneumonia Possible sepsis secondary to pneumonia Sputum c/s - Yeast= contaminant Continue empiric zithromax/ ceftriaxone
[2017-01-03] MEDS: cefTRIAXone 1 GM/50 ML BAG (PRE-DOCKED) IVPB SCH (10:54)
--- NOTE | 2017-01-03 11:16 | PN ---
Progress Note, Physician History of Present Illness: pulmonary alert,feeling better,-sob,+cough bood streaked sputum - Current Medication List Current Medications: Active Medications Acetaminophen (Tylenol -) 650 mg PO TID PRN PRN Reason: FEVER Last Admin: 12/31/16 21:24 Dose: 650 mg Acyclovir (Zovirax -) 400 mg PO BID [facility] Stop: 01/05/17 00:00 Last Admin: 01/03/17 09:26 Dose: 400 mg Albuterol Sulfate (Ventolin 0.083% Nebulizer Soln -) 1 amp NEB Q1H PRN PRN Reason: SHORT OF BREATH/WHEEZING Last Admin: 01/02/17 11:48 Dose: 1 amp Azithromycin (Zithromax 500mg Ivpb (Pre-Docked)) 500 mg IVPB DAILY [facility] Last Admin: 01/03/17 09:29 Dose: 500 mg Ceftriaxone Sodium (Rocephin 1gm Ivpb (Pre-Docked)) 1 gm IVPB DAILY [facility] Last Admin: 01/03/17 10:54 Dose: 1 gm Cholecalciferol (Vitamin D3 -) 2,000 unit PO DAILY [facility] Last Admin: 01/03/17 09:26 Dose: 2,000 unit Clopidogrel Bisulfate (Plavix -) 75 mg PO DAILY [facility] Last Admin: 01/03/17 09:26 Dose: 75 mg Finasteride (Proscar -) 5 mg PO HS [facility] Last Admin: 01/02/17 21:35 Dose: 5 mg Furosemide (Lasix -) 40 mg PO DAILY [facility] Last Admin: 01/03/17 09:26 Dose: 40 mg Dextrose/Sodium Chloride (D5-1/2ns -) 1,000 mls @ 60 mls/hr IV ASDIR [facility] Last Admin: 01/03/17 06:38 Dose: 60 mls/hr Oseltamivir Phosphate (Tamiflu -) 75 mg PO BID [facility] Stop: 01/05/17 21:59 Last Admin: 01/03/17 09:26 Dose: 75 mg Pantoprazole Sodium (Protonix -) 20 mg PO DAILY [facility] Last Admin: 01/03/17 09:26 Dose: 20 mg Ranitidine HCl (Zantac -) 150 mg PO DAILY [facility] Last Admin: 01/03/17 09:26 Dose: 150 mg Tamsulosin HCl (Flomax -) 0.4 mg PO HS [facility] Last Admin: 01/02/17 21:35 Dose: 0.4 mg - Objective Vital Signs: Vital Signs Temperature 98.1 F 01/03/17 09:15 Pulse Rate 100 H 01/03/17 09:15 Respiratory Rate 20 01/03/17 09:15 Blood Pressure 128/65 01/03/17 09:15 O2 Sat by Pulse Oximetry (%) 95 01/02/17 21:00 Constitutional: Yes: Well Nourished, Calm Eyes: Yes: WNL HENT: Yes: WNL Neck: Yes: WNL Cardiovascular: Yes: Pulse Irregular, S1, S2 Respiratory: Yes: CTA Bilaterally Gastrointestinal: Yes: WNL Extremities: Yes: WNL Edema: No Labs: CBC, BMP 01/02/17 06:00 01/02/17 06:00 INR, PTT INR 1.36 (0.82-1.09) H 12/31/16 16:40 Problem List - Problems (1) Pneumonia Code(s): J18.9 - PNEUMONIA, UNSPECIFIED ORGANISM Qualifiers: Pneumonia type: due to unspecified organism Laterality: right Lung location: unspecified part of lung Qualified Code(s): J18.9 - Pneumonia, unspecified organism (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 Assessment/Plan IMP RML PNEUMONIA COMMUNITY ACQUIRED AFIB GERD BARRETTS ESOPHAGUS PLAN IV ANTIBIOTICS as ID O2 INHALED BRONCHODILATORS F/U CHEST X-RAy am Zovirax cream DR BROWN Problem List - Problems (1) Pneumonia Code(s): J18.9 - PNEUMONIA, UNSPECIFIED ORGANISM (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 Problem List - Problems (1) Pneumonia Code(s): J18.9 - PNEUMONIA, UNSPECIFIED ORGANISM Qualifiers: Pneumonia type: due to unspecified organism Laterality: right Lung location: unspecified part of lung Qualified Code(s): J18.9 - Pneumonia, unspecified organism (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
[2017-01-03] MEDS: FINASTERIDE 5 MG TABLET (FP) PO SCH (21:13)
[2017-01-03] MEDS: TAMSULOSIN HCL 0.4 MG CAP.ER.24H (FP) PO SCH (21:13)
--- NOTE | 2017-01-04 09:21 | PN ---
Progress Note, Physician Chief Complaint: ID Clinical improvement note NO fevers several days and couph better - Current Medication List Current Medications: Active Medications Acetaminophen (Tylenol -) 650 mg PO TID PRN PRN Reason: FEVER Last Admin: 12/31/16 21:24 Dose: 650 mg Acyclovir (Zovirax -) 400 mg PO BID [facility] Stop: 01/05/17 00:00 Last Admin: 01/03/17 21:12 Dose: 400 mg Albuterol Sulfate (Ventolin 0.083% Nebulizer Soln -) 1 amp NEB Q1H PRN PRN Reason: SHORT OF BREATH/WHEEZING Last Admin: 01/02/17 11:48 Dose: 1 amp Azithromycin (Zithromax 500mg Ivpb (Pre-Docked)) 500 mg IVPB DAILY [facility] Last Admin: 01/03/17 09:29 Dose: 500 mg Ceftriaxone Sodium (Rocephin 1gm Ivpb (Pre-Docked)) 1 gm IVPB DAILY [facility] Last Admin: 01/03/17 10:54 Dose: 1 gm Cholecalciferol (Vitamin D3 -) 2,000 unit PO DAILY [facility] Last Admin: 01/03/17 09:26 Dose: 2,000 unit Clopidogrel Bisulfate (Plavix -) 75 mg PO DAILY [facility] Last Admin: 01/03/17 09:26 Dose: 75 mg Finasteride (Proscar -) 5 mg PO HS [facility] Last Admin: 01/03/17 21:13 Dose: 5 mg Furosemide (Lasix -) 40 mg PO DAILY [facility] Last Admin: 01/03/17 09:26 Dose: 40 mg Oseltamivir Phosphate (Tamiflu -) 75 mg PO BID [facility] Stop: 01/05/17 21:59 Last Admin: 01/03/17 21:13 Dose: 75 mg Pantoprazole Sodium (Protonix -) 20 mg PO DAILY [facility] Last Admin: 01/03/17 09:26 Dose: 20 mg Ranitidine HCl (Zantac -) 150 mg PO DAILY [facility] Last Admin: 01/03/17 09:26 Dose: 150 mg Tamsulosin HCl (Flomax -) 0.4 mg PO HS [facility] Last Admin: 01/03/17 21:13 Dose: 0.4 mg - Objective Vital Signs: Vital Signs Temperature 98.8 F 01/04/17 09:11 Pulse Rate 96 H 01/04/17 09:11 Respiratory Rate 19 01/04/17 09:11 Blood Pressure 116/81 01/04/17 09:11 O2 Sat by Pulse Oximetry (%) 97 01/04/17 09:00 Constitutional: Yes: Well Nourished, No Distress HENT: Yes: WNL, Atraumatic Neck: Yes: WNL, Supple Cardiovascular: Yes: Regular Rate and Rhythm, S1, S2 Respiratory: Yes: WNL, Regular, CTA Bilaterally Gastrointestinal: Yes: WNL, Normal Bowel Sounds, Soft, Tenderness. No: Tenderness, Epigastrium Edema: No Integumentary: Yes: Venous Stasis Changes Labs: CBC, BMP 01/02/17 06:00 01/02/17 06:00 INR, PTT INR 1.36 (0.82-1.09) H 12/31/16 16:40 Problem List - Problems (1) Pneumonia Code(s): J18.9 - PNEUMONIA, UNSPECIFIED ORGANISM Qualifiers: Pneumonia type: due to unspecified organism Laterality: right Lung location: unspecified part of lung Qualified Code(s): J18.9 - Pneumonia, unspecified organism Assessment/Plan Microbiology 01/01/17 17:20 Urine For Antigen Detection Legionella Antigen - Final 01/01/17 17:20 Urine For Antigen Detection Streptococcus pneumoniae Antigen (M - Final 12/31/16 16:40 Urine - Urine Clean Catch Urine Culture - Final NO GROWTH OBTAINED 12/31/16 18:40 Blood - Central Line Blood Culture - Preliminary NO GROWTH OBTAINED AFTER 72 HOURS, INCUBATION TO CONTINUE FOR 2 DAYS. 12/31/16 18:18 Blood - Central Line Blood Culture - Preliminary NO GROWTH OBTAINED AFTER 72 HOURS, INCUBATION TO CONTINUE FOR 2 DAYS. Laboratory Tests 12/31/16 01/02/17 01/02/17 16:40 06:00 06:00 WBC 13.3 H D 6.9 D Hgb 11.8 Hct 34.9 L Plt Count 142 BUN 14 Creatinine 1.0 D Assessment RML pneumonia clinical improvement Oral HSV Plan Tomorrow switch po levofloxacin for balance fo treatment 4-5 days Acyclovir po added Patricia BUNCH
[2017-01-04] MEDS: cefTRIAXone 1 GM/50 ML BAG (PRE-DOCKED) IVPB SCH (09:48)
[2017-01-04] MEDS: CLOPIDOGREL BISULFATE 75 MG TABLET (FP) PO SCH (09:48)
[2017-01-04] MEDS: FUROSEMIDE 40 MG TABLET (FP) PO SCH (09:48)
[2017-01-04] MEDS: CHOLECALCIFEROL (VITAMIN D3) 1,000 UNIT TABLET (FP) PO SCH (09:48)
[2017-01-04] MEDS: PANTOPRAZOLE 20 MG TABLET (FP) PO SCH (09:48)
[2017-01-04] MEDS: RANITIDINE HCL 150 MG TABLET (FP) PO SCH (09:48)
[2017-01-04] MEDS: OSELTAMIVIR PHOSPHATE 75 MG CAPSULE PO SCH ×2 (09:50→21:39)
[2017-01-04] MEDS: ACYCLOVIR 400 MG TABLET PO SCH ×2 (09:51→21:39)
[2017-01-04] MEDS: AZITHROMYCIN IVPB 500 MG/250 ML D5W PRE-DOCKED IVPB SCH (09:51)
--- NOTE | 2017-01-04 11:47 | PN ---
Progress Note, Physician History of Present Illness: pulmonary alert,feeling better,less cough,-heme - Current Medication List Current Medications: Active Medications Acetaminophen (Tylenol -) 650 mg PO TID PRN PRN Reason: FEVER Last Admin: 12/31/16 21:24 Dose: 650 mg Acyclovir (Zovirax -) 400 mg PO BID [facility] Stop: 01/05/17 00:00 Last Admin: 01/04/17 09:51 Dose: 400 mg Albuterol Sulfate (Ventolin 0.083% Nebulizer Soln -) 1 amp NEB Q1H PRN PRN Reason: SHORT OF BREATH/WHEEZING Last Admin: 01/02/17 11:48 Dose: 1 amp Azithromycin (Zithromax 500mg Ivpb (Pre-Docked)) 500 mg IVPB DAILY [facility] Last Admin: 01/04/17 09:51 Dose: 500 mg Ceftriaxone Sodium (Rocephin 1gm Ivpb (Pre-Docked)) 1 gm IVPB DAILY [facility] Last Admin: 01/04/17 09:48 Dose: 1 gm Cholecalciferol (Vitamin D3 -) 2,000 unit PO DAILY [facility] Last Admin: 01/04/17 09:48 Dose: 2,000 unit Clopidogrel Bisulfate (Plavix -) 75 mg PO DAILY [facility] Last Admin: 01/04/17 09:48 Dose: 75 mg Finasteride (Proscar -) 5 mg PO HS [facility] Last Admin: 01/03/17 21:13 Dose: 5 mg Furosemide (Lasix -) 40 mg PO DAILY [facility] Last Admin: 01/04/17 09:48 Dose: 40 mg Oseltamivir Phosphate (Tamiflu -) 75 mg PO BID [facility] Stop: 01/05/17 21:59 Last Admin: 01/04/17 09:50 Dose: 75 mg Pantoprazole Sodium (Protonix -) 20 mg PO DAILY [facility] Last Admin: 01/04/17 09:48 Dose: 20 mg Ranitidine HCl (Zantac -) 150 mg PO DAILY [facility] Last Admin: 01/04/17 09:48 Dose: 150 mg Tamsulosin HCl (Flomax -) 0.4 mg PO HS [facility] Last Admin: 01/03/17 21:13 Dose: 0.4 mg - Objective Vital Signs: Vital Signs Temperature 98.8 F 01/04/17 09:11 Pulse Rate 96 H 01/04/17 09:11 Respiratory Rate 19 01/04/17 09:11 Blood Pressure 116/81 01/04/17 09:11 O2 Sat by Pulse Oximetry (%) 97 01/04/17 09:00 Constitutional: Yes: Well Nourished, Calm Eyes: Yes: WNL HENT: Yes: WNL Neck: Yes: WNL Cardiovascular: Yes: Pulse Irregular, S1, S2 Respiratory: Yes: CTA Bilaterally Gastrointestinal: Yes: Normal Bowel Sounds, Soft Extremities: Yes: WNL Edema: No Labs: CBC, BMP 01/02/17 06:00 01/02/17 06:00 INR, PTT INR 1.36 (0.82-1.09) H 12/31/16 16:40 Problem List - Problems (1) Pneumonia Code(s): J18.9 - PNEUMONIA, UNSPECIFIED ORGANISM Qualifiers: Pneumonia type: due to unspecified organism Laterality: right Lung location: unspecified part of lung Qualified Code(s): J18.9 - Pneumonia, unspecified organism (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 Assessment/Plan IMP RML PNEUMONIA COMMUNITY ACQUIRED AFIB GERD BARRETTS ESOPHAGUS PLAN IV ANTIBIOTICS D/C IN AM LEVAQUIN AM O2 INHALED BRONCHODILATORS F/U CHEST X-RAy am Zovirax cream DR BROWN Problem List - Problems (1) Pneumonia Code(s): J18.9 - PNEUMONIA, UNSPECIFIED ORGANISM (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 Problem List - Problems (1) Pneumonia Code(s): J18.9 - PNEUMONIA, UNSPECIFIED ORGANISM Qualifiers: Pneumonia type: due to unspecified organism Laterality: right Lung location: unspecified part of lung Qualified Code(s): J18.9 - Pneumonia, unspecified organism (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
[2017-01-04] MEDS ORDERED: PT OWN MED DRAWER 7, Y5N ONE (21:36)
[2017-01-04] MEDS: FINASTERIDE 5 MG TABLET (FP) PO SCH (21:40)
[2017-01-04] MEDS: TAMSULOSIN HCL 0.4 MG CAP.ER.24H (FP) PO SCH (21:40)
[2017-01-05] MEDS: CHOLECALCIFEROL (VITAMIN D3) 1,000 UNIT TABLET (FP) PO SCH (09:46)
[2017-01-05] MEDS: CLOPIDOGREL BISULFATE 75 MG TABLET (FP) PO SCH (09:46)
[2017-01-05] MEDS: RANITIDINE HCL 150 MG TABLET (FP) PO SCH (09:46)
[2017-01-05] MEDS: FUROSEMIDE 40 MG TABLET (FP) PO SCH (09:46)
[2017-01-05] MEDS: PANTOPRAZOLE 20 MG TABLET (FP) PO SCH (09:46)
[2017-01-05] MEDS: AZITHROMYCIN IVPB 500 MG/250 ML D5W PRE-DOCKED IVPB SCH (09:46)
[2017-01-05] MEDS: OSELTAMIVIR PHOSPHATE 75 MG CAPSULE PO SCH (09:48)
[2017-01-05] MEDS ORDERED: PT OWN MED DRAWER 7, Y5N ONE (09:48)
[2017-01-05] MEDS: cefTRIAXone 1 GM/50 ML BAG (PRE-DOCKED) IVPB SCH (11:23)
--- NOTE | 2017-01-05 11:51 | PN ---
Progress Note, Physician History of Present Illness: pulmonary feeling better,less cough,-hemoptysis - Current Medication List Current Medications: Active Medications Acetaminophen (Tylenol -) 650 mg PO TID PRN PRN Reason: FEVER Last Admin: 12/31/16 21:24 Dose: 650 mg Albuterol Sulfate (Ventolin 0.083% Nebulizer Soln -) 1 amp NEB Q1H PRN PRN Reason: SHORT OF BREATH/WHEEZING Last Admin: 01/02/17 11:48 Dose: 1 amp Azithromycin (Zithromax 500mg Ivpb (Pre-Docked)) 500 mg IVPB DAILY [facility] Last Admin: 01/05/17 09:46 Dose: 500 mg Ceftriaxone Sodium (Rocephin 1gm Ivpb (Pre-Docked)) 1 gm IVPB DAILY [facility] Last Admin: 01/05/17 11:23 Dose: 1 gm Cholecalciferol (Vitamin D3 -) 2,000 unit PO DAILY [facility] Last Admin: 01/05/17 09:46 Dose: 2,000 unit Clopidogrel Bisulfate (Plavix -) 75 mg PO DAILY [facility] Last Admin: 01/05/17 09:46 Dose: 75 mg Finasteride (Proscar -) 5 mg PO HS [facility] Last Admin: 01/04/17 21:40 Dose: 5 mg Furosemide (Lasix -) 40 mg PO DAILY [facility] Last Admin: 01/05/17 09:46 Dose: 40 mg Oseltamivir Phosphate (Tamiflu -) 75 mg PO BID [facility] Stop: 01/05/17 21:59 Last Admin: 01/05/17 09:48 Dose: 75 mg Pantoprazole Sodium (Protonix -) 20 mg PO DAILY [facility] Last Admin: 01/05/17 09:46 Dose: 20 mg Ranitidine HCl (Zantac -) 150 mg PO DAILY [facility] Last Admin: 01/05/17 09:46 Dose: 150 mg Tamsulosin HCl (Flomax -) 0.4 mg PO HS [facility] Last Admin: 01/04/17 21:40 Dose: 0.4 mg - Objective Vital Signs: Vital Signs Temperature 98.3 F 01/05/17 09:45 Pulse Rate 102 H 01/05/17 09:45 Respiratory Rate 20 01/05/17 09:45 Blood Pressure 127/77 01/05/17 09:45 O2 Sat by Pulse Oximetry (%) 98 01/04/17 21:00 Constitutional: Yes: Well Nourished, Calm Eyes: Yes: WNL HENT: Yes: WNL Neck: Yes: WNL Cardiovascular: Yes: Pulse Irregular, S1, S2 Respiratory: Yes: Diminished Gastrointestinal: Yes: WNL Extremities: Yes: WNL Edema: Yes Labs: CBC, BMP Problem List - Problems (1) Pneumonia Code(s): J18.9 - PNEUMONIA, UNSPECIFIED ORGANISM Qualifiers: Pneumonia type: due to unspecified organism Laterality: right Lung location: unspecified part of lung Qualified Code(s): J18.9 - Pneumonia, unspecified organism (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 Assessment/Plan IMP RML PNEUMONIA COMMUNITY ACQUIRED AFIB GERD BARRETTS ESOPHAGUS PLAN IV ANTIBIOTICS D/C TODAY LEVAQUIN AM O2 INHALED BRONCHODILATORS F/U CHEST X-RAy am Zovirax cream DR BROWN Problem List - Problems (1) Pneumonia Code(s): J18.9 - PNEUMONIA, UNSPECIFIED ORGANISM (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 Problem List - Problems (1) Pneumonia Code(s): J18.9 - PNEUMONIA, UNSPECIFIED ORGANISM Qualifiers: Pneumonia type: due to unspecified organism Laterality: right Lung location: unspecified part of lung Qualified Code(s): J18.9 - Pneumonia, unspecified organism (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
--- NOTE | 2017-01-05 13:40 | PN ---
Physical Exam: SUBJECTIVE: Patient seen and examined Resting in bed comfortably NAD. No acute events. Afebrile and hemodynamically stable. Feels, better, stronger, cough almost resolved. He denies sob, chest pain, abd pain, n/v, diarrhea, dysuria. OBJECTIVE: Vital Signs Period Temp Pulse Resp BP Sys/Haynes Pulse Ox Last 24 Hr 97.5 F-98.4 F 92-102 20-20 98-127/65-86 98-100 GENERAL: Awake, alert, and fully oriented, in no acute distress. HEAD: Normal with no signs of trauma. EYES: Pupils equal, round and reactive to light, extraocular movements intact, sclera anicteric, conjunctiva clear. EARS, NOSE, THROAT: Moist mucous membranes. NECK: supple without JVD LUNGS: mild RLL ronchi HEART: irregular, normal S1 and S2 ABDOMEN: Soft, nontender, not distended, normoactive bowel sounds MUSCULOSKELETAL: No CVA tenderness. UPPER EXTREMITIES: 2+ pulses, No peripheral edema. LOWER EXTREMITIES: 2+ pulses, No peripheral edema. NEUROLOGICAL: Cranial nerves II-XII grossly intact. PSYCHIATRIC: Cooperative. Good eye contact. SKIN: Warm, dry Active Medications Generic Name Dose Route Start Last Admin Trade Name Freq PRN Reason Stop Dose Admin Acetaminophen 650 mg 12/31/16 19:45 12/31/16 21:24 Tylenol - PO 650 mg TID PRN Administration FEVER Albuterol Sulfate 1 amp 01/01/17 13:10 01/02/17 11:48 Ventolin 0.083% Nebulizer Soln - NEB 1 amp Q1H PRN Administration SHORT OF BREATH/WHEEZING Azithromycin 500 mg 01/01/17 13:00 01/05/17 09:46 Zithromax 500mg Ivpb (Pre-Docked) IVPB 500 mg DAILY JON Administration Ceftriaxone Sodium 1 gm 01/01/17 13:00 01/05/17 11:23 Rocephin 1gm Ivpb (Pre-Docked) IVPB 1 gm DAILY JON Administration Cholecalciferol 2,000 unit 01/01/17 10:00 01/05/17 09:46 Vitamin D3 - PO 2,000 unit DAILY JON Administration Clopidogrel Bisulfate 75 mg 12/31/16 19:45 01/05/17 09:46 Plavix - PO 75 mg DAILY JON Administration Finasteride 5 mg 12/31/16 22:00 01/04/17 21:40 Proscar - PO 5 mg HS JON Administration Furosemide 40 mg 01/02/17 13:30 01/05/17 09:46 Lasix - PO 40 mg DAILY JON Administration Oseltamivir Phosphate 75 mg 12/31/16 22:00 01/05/17 09:48 Tamiflu - PO 01/05/17 21:59 75 mg BID JON Administration Pantoprazole Sodium 20 mg 12/31/16 20:15 01/05/17 09:46 Protonix - PO 20 mg DAILY JON Administration Ranitidine HCl 150 mg 12/31/16 19:45 01/05/17 09:46 Zantac - PO 150 mg DAILY JON Administration Tamsulosin HCl 0.4 mg 12/31/16 22:00 01/04/17 21:40 Flomax - PO 0.4 mg HS JON Administration ASSESSMENT/PLAN: Community acquired Pneumonia -influenza exposure -flu swab negative -tamiflu PO -flu vaccine -CXR RLL infiltrate, repeat CXR improved -CT Chest RML PNA -can switch to PO abx -robitussin -albuterol -legionella antigen negative -sputum culture yeast -resp virus culture negative -D/c tomorrow A fib -continue plavix -rate controlled Dispo: We will continue to follow the patient. Thank you for this consultative opportunity. Problem List - Problems (1) Afib Code(s): I48.91 - UNSPECIFIED ATRIAL FIBRILLATION (2) Pneumonia Code(s): J18.9 - PNEUMONIA, UNSPECIFIED ORGANISM Qualifiers: Pneumonia type: due to unspecified organism Laterality: right Lung location: unspecified part of lung Qualified Code(s): J18.9 - Pneumonia, unspecified organism (3) Community acquired bacterial pneumonia Code(s): J15.9 - UNSPECIFIED BACTERIAL PNEUMONIA (4) Influenza Code(s): J11.1 - FLU DUE TO UNIDENTIFIED INFLUENZA VIRUS W OTH RESP MANIFEST Visit type - Emergency Visit Emergency Visit: Yes ED Registration Date: 12/31/16 Care time: The patient presented to the Emergency Department on the above date and was hospitalized for further evaluation of their emergent condition. - New Patient This patient is new to me today: No - Critical Care Critical Care patient: No - Discharge Referral Referred to [facility] Med P.C.: No
[2017-01-05] MEDS: TAMSULOSIN HCL 0.4 MG CAP.ER.24H (FP) PO SCH (21:48)
[2017-01-05] MEDS: FINASTERIDE 5 MG TABLET (FP) PO SCH (21:48)
[2017-01-06] MEDS: PANTOPRAZOLE 20 MG TABLET (FP) PO SCH (10:16)
[2017-01-06] MEDS: cefTRIAXone 1 GM/50 ML BAG (PRE-DOCKED) IVPB SCH (10:16)
[2017-01-06] MEDS: FUROSEMIDE 40 MG TABLET (FP) PO SCH (10:16)
[2017-01-06] MEDS: CLOPIDOGREL BISULFATE 75 MG TABLET (FP) PO SCH (10:16)
[2017-01-06] MEDS: AZITHROMYCIN IVPB 500 MG/250 ML D5W PRE-DOCKED IVPB SCH (10:16)
[2017-01-06] MEDS: CHOLECALCIFEROL (VITAMIN D3) 1,000 UNIT TABLET (FP) PO SCH (10:17)
[2017-01-06] MEDS: RANITIDINE HCL 150 MG TABLET (FP) PO SCH (10:17)
--- NOTE | 2017-01-06 12:47 | DS ---
Physical Examination Vital Signs: Vital Signs Temperature 98.1 F 01/06/17 10:00 Pulse Rate 91 H 01/06/17 10:00 Respiratory Rate 20 01/06/17 10:00 Blood Pressure 122/73 01/06/17 10:00 O2 Sat by Pulse Oximetry (%) 100 01/06/17 09:00 Constitutional: Yes: No Distress, Calm Eyes: Yes: Conjunctiva Clear, EOM Intact HENT: Yes: Atraumatic, Normocephalic Neck: Yes: Supple, Trachea Midline Cardiovascular: Yes: Regular Rate and Rhythm Respiratory: Yes: Regular, Diminished (decreased breath sounds at the bases) Gastrointestinal: Yes: Normal Bowel Sounds, Soft. No: Tenderness Edema: No Neurological: Yes: Alert, Oriented Labs: CBC, BMP 01/02/17 06:00 01/02/17 06:00 Discharge Summary Reason For Visit: PNEUMONIA Current Active Problems Afib (Acute) Gonzalez esophagus (Acute) Community acquired bacterial pneumonia (Acute) GERD (gastroesophageal reflux disease) (Acute) Influenza (Acute) Pneumonia (Acute) Procedures: Principal: IV antibiotics Hospital Course: 76yo male with h/o atrial fibrillation on plavix who was admitted for cough and fevers. Chest CT showing extensive RML infiltrate as well as patchy infiltrate on left. Started on ceftriaxone/azithromycin for community acquired pneumonia as well as empiric tamiflu. Clinical improvement with antibiotics and fever curve trended down. Pt stable for discharge. c/o some intermittent left ear pain /fullness, will refer to Dr. Quevedo as outpt. Condition: Improved - Instructions Referrals: Jarad Arteaga MD [Primary Care Provider] - Sagar Quevedo MD [Staff Physician] - Disposition: HOME - Home Medications Comprehensive Discharge Medication List: Ambulatory Orders Furosemide [Lasix -] 40 mg PO DAILY 05/14/12 Finasteride [Proscar] 5 mg PO HS 09/07/14 Omeprazole Magnesium [Prilosec (OTC)] 1 tab OD DAILY 09/07/14 Ranitidine [Zantac -] 1 tab PO DAILY 09/07/14 Tamsulosin HCl [Flomax -] 0.4 mg PO HS 09/07/14 Clopidogrel Bisulfate [Plavix -] 75 mg PO DAILY #0 09/08/14 Cholecalciferol (Vitamin D3) [D3-2000] 2,000 unit PO DAILY 09/18/14 Acyclovir [Zovirax -] 400 mg PO BID #28 tablet 01/06/17 Cholecalciferol (Vitamin D3) [Vitamin D3 -] 2,000 unit PO DAILY tab 01/06/17 Clopidogrel Bisulfate [Plavix -] 75 mg PO DAILY tablet 01/06/17 Finasteride [Proscar -] 5 mg PO HS tablet 01/06/17 Furosemide [Lasix -] 40 mg PO DAILY tablet 01/06/17 Levofloxacin [Levaquin] 500 mg PO DAILY #3 tablet 01/06/17 Ranitidine [Zantac -] 150 mg PO DAILY tablet 01/06/17 Tamsulosin HCl [Flomax -] 0.4 mg PO HS cap.er.24h 01/06/17
[2017-01-06 14:55] VITALS: BP 115/75; PULSE 94; TEMP 98.2
== END 2017-01-06 15:14 | disposition home or self-care (01) | DRG 195 ==
LOC: JER 14:46 → JERBED 19:44 → J4S 22:10
PROVIDERS: ADMIT Specialist; ATTEND Specialist
DX: J10.08 Influenza due to other identified influenza virus with other specified pneumonia (principal); I48.91 Unspecified atrial fibrillation; N40.0 Benign prostatic hyperplasia without lower urinary tract symptoms; E78.00 Pure hypercholesterolemia, unspecified; K21.9 Gastro-esophageal reflux disease without esophagitis; K22.70 Barrett's esophagus without dysplasia; Z85.828 Personal history of other malignant neoplasm of skin; Z87.891 Personal history of nicotine dependence
CPT/HCPCS: 36415; 71020-TC; 71250-TC; 80048; 80053; 81003; 81015; 83605; 85025; 85610; 85730; 87040; 87070; 87086; 87205; 87254; 87804; 87899; 90686; 93005; 93010; 94640; 99285-25; G0008; Q2037

== ENCOUNTER 2019-09-07 07:16 | Day surgery (SDC) | payer OTHER, BC ==
[2019-09-07 07:45] VITALS: BMI 28.5
[2019-09-07 08:56] VITALS: TEMP 97.7
[2019-09-07 11:11] VITALS: BP 119/77; PULSE 80
--- NOTE | 2019-09-08 16:36 | PATH ---
Surgical Pathology Report Patient Name: BRIDGET MARTINI V. [facility]. Rec. #: [id number] /Age/Gender: 1940 (Age: 78) / M Account: [id number] Location: [facility] Taken: 09/07/2019 Received: 09/07/2019 Reported: 09/08/2019 Physicians: Elton Gallegos M.D. Specimen(s) Received A: 2ND PORION AND DUODENAL BULB B: ANTRUM C: GE JUNCTION Clinical History History of Bragg's esophagus, history of colon adenomas Postoperative diagnosis: GERD, gastritis, Bragg's esophagus, diverticulosis Final Diagnosis A. SECOND PORTION AND DULB OF DUODENUM, BIOPSY: DUODENUM MUCOSA WITH NO SIGNIFICANT PATHOLOGIC CHANGE. NO HISTOLOGIC EVIDENCE OF CELIAC DISEASE. B. ANTRUM, BIOPSY: GASTRIC MUCOSA WITH MILD CHRONIC GASTRITIS. IMMUNOSTAIN FOR H. PYLORI IS NEGATIVE. NEGATIVE FOR INTESTINAL METAPLASIA. C. GE JUNCTION, BIOPSY: GASTROESOPHAGEAL JUNCTIONAL MUCOSA WITH REFLUX ESOPHAGITIS AND INTESTINAL METAPLASIA, CONSISTENT WITH BRAGG'S ESOPHAGUS. NEGATIVE FOR DYSPLASIA. Electronically Signed Guicho Schmidt M.D. Gross Description A. Received in formalin, labeled "second portion and bulb of duodenum" are 3 graff, irregular portions of soft tissue ranging from 0.5-0.6 cm. in greatest dimension. The specimens are submitted in toto in one cassette. B. Received in formalin, labeled "antrum biopsy" are 2 graff, irregular portions of soft tissue averaging 0.5 cm. in greatest dimension. The specimens are submitted in toto in one cassette. C. Received in formalin, labeled "GE junction biopsy" are 4 graff, irregular portions of soft tissue ranging from 0.2-0.4 cm. in greatest dimension. The specimens are submitted in toto in one cassette. DL/09/07/2019 saudi09/07/2019
== END 2019-09-07 10:10 | disposition home or self-care (01) ==
LOC: JASU-ENDO 07:16
PROVIDERS: ATTEND Internal Medicine Gastroenterology
PROC: 0DB48ZX Excision of Esophagogastric Junction, Via Natural or Artificial Opening Endoscopic, Diagnostic (ICD-10-PCS; 2019-09-07)
PROC: 0DJD8ZZ Inspection of Lower Intestinal Tract, Via Natural or Artificial Opening Endoscopic (ICD-10-PCS; principal; 2019-09-07 08:00)
DX: Z12.11 Encounter for screening for malignant neoplasm of colon (principal); Z86.010 Personal history of colon polyps; K64.8 Other hemorrhoids; K57.30 Diverticulosis of large intestine without perforation or abscess without bleeding; K63.89 Other specified diseases of intestine; K21.9 Gastro-esophageal reflux disease without esophagitis; K44.9 Diaphragmatic hernia without obstruction or gangrene; K22.70 Barrett's esophagus without dysplasia; K29.70 Gastritis, unspecified, without bleeding
CPT/HCPCS: 43239; G0105